=== PATIENT | female | born 1985 | race Caucasian/White ===

== ENCOUNTER → 2018-04-29 | Outpatient (CLI) | payer OTHER ==
--- NOTE | 2018-04-29 08:03 | DIAGNOSTIC IMAGING REPORT ---
ABDOMEN LIMITED (US) HISTORY: ELEVATED LFTS. COMPARISON: None. FINDINGS: Pancreas: The pancreas demonstrates a normal echotexture. Liver: Fatty infiltration Gallbladder: No gallbladder wall thickening. No gallstones. CBD: 5 mm Right kidney: No hydronephrosis. IMPRESSION: Fatty infiltration of the liver. Otherwise negative study The above report was generated using voice recognition software. It may contain grammatical, syntax or spelling errors. Electronically signed by: Zain Degroot M.D. 04/29/2018 8:02 AM Dictated Date/Time: 04/29/2018 8:01 AM
== END | disposition home or self-care (01) ==
LOC: C.ULTR 07:34
PROVIDERS: ATTEND Family Medicine
DX: K76.0 Fatty (change of) liver, not elsewhere classified (principal)

== ENCOUNTER 2018-05-24 03:28 | Emergency (ER) | payer OTHER ==
[~2018-05-24] VITALS: Ht 170.2 cm; Wt 119.7 kg
[2018-05-24 03:32] VITALS: TEMP 36.7; Ht 170.2 cm; Wt 119.7 kg
[2018-05-24 03:38] VITALS: O2SAT 97
[2018-05-24 04:04] LABS: BASO % 0.1 %; BASO ABS # 0.01 K/uL (0-0.2); EOS % 1.1 %; HEMATOCRIT 42.4 % (37-47); HEMOGLOBIN 14.2 g/dL (12.0-16.0); IG# 0.03 K/uL (0.00-0.02); LYMPH % 24.9 %; LYMPH ABS # 2.18 K/uL (1.2-3.4); MEAN CELL VOLUME 92.4 fL (80-100); MEAN CORPUSCULAR HEMOGLOBIN 30.9 pg (25-34); MEAN CORPUSCULAR HGB CONC 33.5 g/dl (32-36); MEAN PLATELET VOLUME 9.4 fL (7.4-10.4); MONO % 6.4 %; MONO ABS # 0.56 K/uL (0.11-0.59); NEUT % 67.2 %; NEUT ABS # 5.88 K/uL (1.4-6.5); PLATELET COUNT 260 K/uL (130-400); RED CELL DISTRIBUTION WIDTH SD 43.6 fL (36.4-46.3); WHITE BLOOD COUNT 8.76 K/uL (4.8-10.8)
--- NOTE | 2018-05-24 04:18 | EMERGENCY ROOM VISIT NOTE ---
History Report prepared by Dalila: Kristian Anthony Under the Supervision of: Dr. Ruth Alexander D.O. First contact with patient: 03:34 Chief Complaint: CARDIAC ASSESSMENT Stated Complaint: EAR/THROAT DISCOMFORT,JAW PAIN,WEAKNESS,RAPID HR Nursing Triage Summary: Patient reports that she started having a "weird" jaw pain days ago, assumed it was TMJ and didn't worry too much about it. Patient had endoscopy last week that showed hiatal hernia as well. Then tonight patient notes that she woke at approx. 0100 this morning with chest pressure, jaw pain and a pain/lump in the back of her throat. Patient states that she has been feeling really weak as well. Family hx of cardiac problems, no personal hx. Believes that she is dehydrated. History of Present Illness The patient is a 33 year old female who presents to the Emergency Room with several complaints that have been present since Thursday of last week, 6 days ago. The patient states that her symptoms began with jaw and ear pain last Thursday. She notes that she has been eating a lot of almonds, and thought that the jaw pain was TMJ. On Thursday morning, 3 days ago the patient had an colonoscopy and endoscopy performed. Thursday evening she started to feel "really weird." She adds that she felt "tired, weak, and cold." She also complains of nausea and "lightheadedness" that began on Thursday, 2 days ago. She continues to describe a "lump in the back of her throat" all day yesterday. This morning she woke up at 0130, 2 hours and 15 minutes ago and could feel her heart "pounding" and "fluttering." She can still feel this sensation at this time. She denies any new supplements or increased stress. The patient does have a history of panic disorder, but denies that her current symptoms feel like that. Source of History: patient Onset: 2 hours and 15 minutes ago Position: chest Quality: other ("fluttering" ) Timing: constant Associated Symptoms: + chills, + headache (Lightheaded), + nausea Review of Systems See HPI for pertinent positives & negatives. A total of 10 systems reviewed and were otherwise negative. Past Medical & Surgical Hx of Panic Disorder Family History Diabetes mellitus Social History Smoking Status: Never Smoker Marital Status: in relationship Housing Status: lives with significant other Occupation Status: employed Current/Historical Medications Scheduled Etonogestrel (Nexplanon), 1 DOSE IU CONTINOUS Metformin Hcl (Glucophage), 1,000 MG PO BID Sertraline (Zoloft), 100 MG PO DAILY Allergies Coded Allergies: Amoxicillin (Verified Allergy, Severe, RASH, 05/24/18) Clavulanic Acid (Verified Allergy, Severe, RASH, 05/24/18) Physical Exam Vital Signs Date Time Temp Pulse Resp B/P (MAP) Pulse Ox O2 Delivery O2 Flow Rate FiO2 05/24/18 05:38 84 18 130/77 98 05/24/18 05:03 75 18 122/70 97 Room Air 85 136/80 87 139/89 05/24/18 04:30 139/79 05/24/18 04:28 85 16 97 05/24/18 04:00 144/85 05/24/18 03:58 88 17 98 05/24/18 03:38 105 05/24/18 03:38 97 Room Air 05/24/18 03:35 146/88 05/24/18 03:32 96 Room Air 05/24/18 03:32 36.7 105 18 146/88 97 Room Air Physical Exam HEENT: Head - normocephalic and atraumatic Pupils are equal, round, and reactive to light. Extraocular eye muscles are intact, and sclera are anicteric. Nose - moist nasal mucosa without discharge. Mouth - moist buccal mucosa. Oropharynx is nonerythematous and there is no tonsillar exudate or edema noted. Neck: Supple; no JVD, nuchal rigidity, cervical lymphadenopathy. Heart: Tachycardic rate and regular rhythm. There is a normal S1 and S2 with no murmurs, clicks, or gallops appreciated. Lungs: Clear to auscultation bilaterally with no wheezes, rales, or rhonchi. Abdomen: Soft, completely nontender, nondistended, with good bowel sounds. There are no palpable pulsatile masses or hepatosplenomegaly. There is no guarding, rigidity, or rebound noted. Extremities: No evidence of cyanosis, clubbing, or edema. There are easily palpable peripheral pulses. Skin: warm and dry with good turgor and no rashes. Medical Decision & Procedures Laboratory Results 05/24/18 03:40 Red Blood Count 4.59, Mean Corpuscular Volume 92.4, Mean Corpuscular Hemoglobin 30.9, Mean Corpuscular Hemoglobin Concent 33.5, Mean Platelet Volume 9.4, Neutrophils (%) (Auto) 67.2, Lymphocytes (%) (Auto) 24.9, Monocytes (%) (Auto) 6.4, Eosinophils (%) (Auto) 1.1, Basophils (%) (Auto) 0.1, Neutrophils # (Auto) 5.88, Lymphocytes # (Auto) 2.18, Monocytes # (Auto) 0.56, Eosinophils # (Auto) 0.10, Basophils # (Auto) 0.01 05/24/18 03:40 Test 05/24/18 03:40 White Blood Count 8.76 K/uL (4.8-10.8) Red Blood Count 4.59 M/uL (4.2-5.4) Hemoglobin 14.2 g/dL (12.0-16.0) Hematocrit 42.4 % (37-47) Mean Corpuscular Volume 92.4 fL (80-100) Mean Corpuscular Hemoglobin 30.9 pg (25-34) Mean Corpuscular Hemoglobin Concent 33.5 g/dl (32-36) Platelet Count 260 K/uL (130-400) Mean Platelet Volume 9.4 fL (7.4-10.4) Neutrophils (%) (Auto) 67.2 % Lymphocytes (%) (Auto) 24.9 % Monocytes (%) (Auto) 6.4 % Eosinophils (%) (Auto) 1.1 % Basophils (%) (Auto) 0.1 % Neutrophils # (Auto) 5.88 K/uL (1.4-6.5) Lymphocytes # (Auto) 2.18 K/uL (1.2-3.4) Monocytes # (Auto) 0.56 K/uL (0.11-0.59) Eosinophils # (Auto) 0.10 K/uL (0-0.5) Basophils # (Auto) 0.01 K/uL (0-0.2) RDW Standard Deviation 43.6 fL (36.4-46.3) RDW Coefficient of Variation 13.0 % (11.5-14.5) Immature Granulocyte % (Auto) 0.3 % Immature Granulocyte # (Auto) 0.03 K/uL (0.00-0.02) Anion Gap 12.0 mmol/L (3-11) Est Creatinine Clear Calc Drug Dose 148.9 ml/min Estimated GFR () 127.5 Estimated GFR (Non- 110.0 BUN/Creatinine Ratio 10.4 (10-20) Calcium Level 8.5 mg/dl (8.5-10.1) Total Bilirubin 0.2 mg/dl (0.2-1) Aspartate Amino Transf (AST/SGOT) 14 U/L (15-37) Alanine Aminotransferase (ALT/SGPT) 21 U/L (12-78) Alkaline Phosphatase 78 U/L (45-117) Troponin I < 0.015 ng/ml (0-0.045) Total Protein 8.2 gm/dl (6.4-8.2) Albumin 3.9 gm/dl (3.4-5.0) Globulin 4.3 gm/dl (2.5-4.0) Albumin/Globulin Ratio 0.9 (0.9-2) Thyroid Stimulating Hormone (TSH) 2.790 uIu/ml (0.300-4.500) Laboratory results per my review. Medications Administered Medications (Trade) Dose Ordered Sig/Awilda Route Start Time Stop Time Status Last Admin Dose Admin Ondansetron HCl (Zofran Inj) 4 mg NOW STAT IV 05/24/18 04:48 05/24/18 04:49 DC 05/24/18 04:59 4 MG Procedure Medications Ordered: Zofran IV ECG Per My Interpretation Indication: chest pain Rate (beats per minute): 99 Rhythm: normal sinus Findings: no acute ischemic change, no ectopy, other (No ST-Segment changes) ED Course 0342: Past medical records reviewed. The patient was evaluated in room A2. A complete history and physical exam was performed. A 12-lead EKG was obtained. An IV lock was initiated and labs are drawn as above 0442: The patient's HR has come down to 85 and the BP has normalized. 0448: The patient continued to complain of nausea. Ordered Zofran 4 mg IV. 0445: I checked on the patient at this time. She stills feels nauseated and weak. I will order orthostatic vitals. 0523: The patient's orthostatic vital signs were normal. 0525: Upon reevaluation, the patient states that she did feel slightly lightheaded when she stood up for orthostatics. She has an appointment with her PCP today. I discussed findings and results with her. She verbalized agreement of the treatment plan. The patient was discharged home. Medical Decision The patient is a 33 year old female who presents to the Emergency Department with fluttering in her chest. Differential diagnosis includes anxiety, thyroid dysfunction, anemia, cardiac dysrhythmia. Laboratory results were reviewed and show; no leukocytosis, stable hemoglobin and hematocrit, normal renal function, normal LFTs, glucose of 106, TSH of 2.7 Patient is having some discomfort over the past couple of days in her left side of her neck and jaw. She also has some nausea, fatigue and lightheadedness. However, tonight, the patient woke from sleep with a fluttering/pounding in her chest. This seemed consistent with a panic disorder or anxiety. I do not have a good explanation why the patient is experiencing weakness or fatigue. EKG was unremarkable. Cardiac enzymes were negative. The patient does have an appointment already scheduled with her PCP this afternoon. I have encouraged her to keep that. If symptoms worsen, she should return to the emergency department. Medication Reconcilliation Current Medication List: was personally reviewed by me Blood Pressure Screening Patient's blood pressure: Normal blood pressure Impression Primary Impression: Weakness Additional Impression: Palpitations Scribe Attestation The scribe's documentation has been prepared under my direction and personally reviewed by me in its entirety. I confirm that the note above accurately reflects all work, treatment, procedures, and medical decision making performed by me. Departure Information Dispostion Home / Self-Care Referrals Heber Fraire MD (PCP) Forms IMPORTANT VISIT INFORMATION Patient Instructions My [facility] Additional Instructions Rest. Move slowly If you feel significantly light-headed, sit down Follow up with PCP Problem Qualifiers
[2018-05-24] MEDS ORDERED: SERT-234 PO (04:22)
[2018-05-24] MEDS ORDERED: ETON1IMP2 IU (04:22)
[2018-05-24] MEDS ORDERED: METF1000 PO (04:22)
[2018-05-24 04:23] LABS: ALBUMIN 3.9 gm/dl (3.4-5.0); ALKALINE PHOSPHATASE 78 U/L (45-117); ALT/SGPT 21 U/L (12-78); AST/SGOT 14 U/L (15-37); BLOOD UREA NITROGEN 7 mg/dl (7-18); CALCIUM 8.5 mg/dl (8.5-10.1); CARBON DIOXIDE 21 mmol/L (21-32); CREATININE 0.72 mg/dl (0.60-1.20); GLUCOSE 106 mg/dl (70-99); POTASSIUM 3.6 mmol/L (3.5-5.1); SODIUM 140 mmol/L (136-145); TOTAL PROTEIN 8.2 gm/dl (6.4-8.2)
[2018-05-24] MEDS ORDERED: ONDANSETRON INJ 2 MG/ML 2 ML VIAL IV STA (04:48)
[2018-05-24 05:38] VITALS: BP 130/77; PULSE 84; O2SAT 98
== END 2018-05-24 05:39 | disposition home or self-care (01) ==
LOC: C.EDB 03:30 → C.EDA 05:39
DX: R00.2 Palpitations (principal); R53.1 Weakness; R11.0 Nausea; R68.84 Jaw pain; R53.83 Other fatigue; R42 Dizziness and giddiness; Z86.59 Personal history of other mental and behavioral disorders; Z79.3 Long term (current) use of hormonal contraceptives; Z88.1 Allergy status to other antibiotic agents